=== PATIENT | female | born 1940 | race Caucasian/White ===

== ENCOUNTER 2017-08-18 03:48 | Inpatient (IN) | payer MEDICAID, OTHER ==
[~2017-08-18] VITALS: Ht 152.4 cm; Wt 73.7 kg
[2017-08-18 06:03] VITALS: BP 135/100; PULSE 85; RESP 16; TEMP 98; O2SAT 97
[2017-08-18] MEDS ORDERED: ALUMINUM/MAGNESIUM/SIMETH 30 ML CUP PO PRN (07:15)
[2017-08-18] MEDS ORDERED: MAGNESIUM HYDROXIDE SUSP 30 ML CUP PO PRN (07:15)
[2017-08-18] MEDS ORDERED: ACETAMINOPHEN 325 MG TAB PO PRN (07:15)
[2017-08-18] MEDS ORDERED: LORazepam 2 MG/ML VIAL - age > 65 yrs IM PRN (07:15)
[2017-08-18] MEDS ORDERED: LORazepam 0.5 MG TAB age > 65 yrs PO PRN (07:15)
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
[2017-08-18 17:40] VITALS: BP 137/81; PULSE 83; RESP 17; TEMP 98.5; O2SAT 98
[2017-08-18] MEDS: risperiDONE 0.25 MG TAB PO SCH (20:40)
[2017-08-18] MEDS ORDERED: diphenhydrAMINE HCL 25 MG CAP PO PRN (21:00)
[2017-08-19 06:07] VITALS: BP 145/68; PULSE 114; RESP 17; TEMP 97.6
[2017-08-19] MEDS: risperiDONE 0.25 MG TAB PO SCH ×2 (08:11→20:25)
--- NOTE | 2017-08-19 10:30 | HHI.PYPN ---
Subjective Remarks Patient was seen today for psychiatric reevaluation. Chart was reviewed. She was also evaluated for second opinion. On psychiatric evaluation today the patient is found recreational area of the unit, she is patient to other patients , talking about Jose Angel Palomares singing some Restorationism songs. She reports very good mood, "a lot of energy, with Jose Angel Palomares in my heart". She denies suicidal and homicidal ideation, she denies visual and auditory hallucinations. The patient is marked psychomotor agitation, restlessness, disruptive at times , early talkative, but no pressure, at times becomes disorganized, but she is redirectable. Compliant with her medications, no significant effects. The patient is oriented 3. Review of Systems Constitutional: DENIES: Diaphoretic episodes, Fatigue, Fever, Weight gain, Weight loss, Chills, Dizziness, Change in appetite, Night Sweats Endocrine: DENIES: Abnorml menstrual pattern, Heat/cold intolerance, Polydipsia , Polyuria, Polyphagia Eyes: DENIES: Blurred vision, Diplopia, Eye inflammation, Eye pain, Vision loss , Photosensitivity, Double Vision Ears, nose, mouth, throat: DENIES: Tinnitus, Hearing loss, Vertigo, Nasal discharge, Oral lesions, Throat pain, Hoarseness, Ear Pain, Running Nose, Epistaxis, Sinus Pain, Toothache, Odynophagia Respiratory: DENIES: Apneas, Cough, Snoring, Wheezing, Hemoptysis, Sputum production, Shortness of breath Cardiovascular: DENIES: Chest pain, Palpitations, Syncope, Dyspnea on Exertion , PND, Lower Extremity Edema, Orthopnea, Claudication Gastrointestinal: DENIES: Abdominal pain, Black stools, Bloody stools, Constipation, Diarrhea, Nausea, Vomiting, Difficulty Swallowing, Anorexia Genitourinary: DENIES: Abnormal vaginal bleeding, Dysmenorrhea, Dyspareunia, Sexual dysfunction, Urinary frequency, Urinary incontinence, Urgency, Hematuria , Dysuria, Nocturia, Vaginal discharge Musculoskeletal: DENIES: Joint pain, Muscle aches, Stiffness, Joint Swelling, Back pain, Neck pain Integumentary: DENIES: Abnormal pigmentation, Pruritus, Rash, Nail changes, Breast masses, Breast skin changes, Nipple discharge Hematologic/lymphatic: DENIES: Bruising, Lymphadenopathy Immunologic/allergic: DENIES: Eczema, Urticaria Neurologic: DENIES: Abnormal gait, Headache, Localized weakness, Paresthesias, Seizures, Speech Problems, Tremor, Poor Balance Psychiatric: COMPLAINS OF: Mood changes, DENIES: Anxiety, Confusion, Depression , Hallucinations, Agitation, Suicidal Ideation, Homicidal Ideation, Delusions Mental Status Examination Appearance: Appropriate Consciousness: Alert Orientation: x4, Place, Date/Time Motor Activity: Normal gait Speech: Unremarkable Language: Adequate Fund of Knowledge: Inadequate Attention and Concentration: Adequate Memory: Impaired Mood: Appropriate Affect: Appropriate Thought Process & Associations: Other (concrete) Thought Content: Preoccupations (scientologist), Delusional Hallucination Type: Visual Delusion Type: Paranoid, Other (scientologist) Suicidal Ideation: No Suicidal Plan: No Suicidal Intention: No Homicidal Ideation: No Homicidal Plan: No Homicidal Intention: No Insight: Poor Judgment: Poor Results Vitals/IOs Vital Signs Date Time Temp Pulse Resp B/P (MAP) Pulse Ox O2 Delivery O2 Flow Rate FiO2 08/19/17 06:07 97.6 114 17 145/68 (93) 08/18/17 17:40 98 Intake and Output 08/19/17 08/19/17 08/20/17 08:00 16:00 00:00 Intake Total 0 ml Balance 0 ml Assessment & Plan Problem List: (1) Unspecified psychosis ICD Codes: F29 - Unspecified psychosis not due to a substance or known physiological condition Assessment & Plan: Patient continues to show symptoms of psychosis, paranoia, manic-like behavior, very religiously preoccupied, hyperactive. Increase Risperdal 2.5 mg twice a day for psychosis. (2) Dementia ICD Codes: F03.90 - Unspecified dementia without behavioral disturbance Assessment & Plan Estimated LOS: days Justification for Cont. Inpt. Patient is acutely psychotic, she needs psychiatric hospitalization for stabilization. Kehinde Adam MD Aug 19, 2017 10:29
[2017-08-19 16:17] VITALS: BP 127/88; PULSE 63; RESP 17; TEMP 98.2; O2SAT 95
[2017-08-20 06:05] VITALS: BP 120/76; PULSE 110; RESP 16; TEMP 98.8; O2SAT 97
[2017-08-20] MEDS: risperiDONE 0.25 MG TAB PO SCH ×2 (08:33→20:31)
--- NOTE | 2017-08-20 15:34 | HHI.PYPN ---
Subjective Remarks Patient was seen and case discussed with nursing. Interview conducted in Nepali. Patient is elevated and grandiose. She is very perseverant and preoccupied with various latter day delusions. She is blessing us in the other patients. She prayed all night. She believes that the [place] is in a tree next to her porch. She is behaving well on the unit and has not had any outbursts. Tolerating her medications well Mental Status Examination Appearance: Appropriate Consciousness: Alert Orientation: x4, Place, Date/Time Motor Activity: Normal gait Speech: Unremarkable Language: Adequate Fund of Knowledge: Inadequate Attention and Concentration: Adequate Memory: Impaired Mood: Appropriate Affect: Appropriate Thought Process & Associations: Other (concrete) Thought Content: Preoccupations (latter day), Delusional Hallucination Type: Visual Delusion Type: Bizarre, Paranoid, Other (latter day) Suicidal Ideation: No Suicidal Plan: No Suicidal Intention: No Homicidal Ideation: No Homicidal Plan: No Homicidal Intention: No Insight: Poor Judgment: Poor Results Vitals/IOs Vital Signs Date Time Temp Pulse Resp B/P (MAP) Pulse Ox O2 Delivery O2 Flow Rate FiO2 08/20/17 06:05 98.8 110 16 120/76 (91) 97 Intake and Output 08/20/17 08/20/17 08/21/17 08:00 16:00 00:00 Intake Total 120 ml Balance 120 ml Assessment & Plan Problem List: (1) Unspecified psychosis ICD Codes: F29 - Unspecified psychosis not due to a substance or known physiological condition (2) Dementia ICD Codes: F03.90 - Unspecified dementia without behavioral disturbance Assessment & Plan Continue current treatment plan Justification for Cont. Inpt. Patient would decompensate in a less restrictive setting. Naveen Villasenor DO Aug 20, 2017 15:34
[2017-08-20 17:44] VITALS: BP 125/66; PULSE 63; RESP 16; TEMP 98.2; O2SAT 100
[2017-08-21 06:02] VITALS: BP 124/67; PULSE 92; RESP 17; TEMP 98; O2SAT 97
[2017-08-21] MEDS: risperiDONE 0.25 MG TAB PO SCH ×2 (08:35→20:26)
--- NOTE | 2017-08-21 11:21 | HHI.PYPN ---
Subjective Remarks Patient was seen and case discussed with nursing. Interview conducted in Kiswahili. Patient does remain religiously preoccupied. Complaining of visual hallucination this morning where she saw 2 suns in the duy. Patient later remembered her nephew named Edgardo in the duy that was killed on the streets of [place]. She became labile and tearful for the next couple minutes. Compliant with medications and behaving well on the unit. Denies suicidal or homicidal ideations or plan Mental Status Examination Appearance: Appropriate Consciousness: Alert Orientation: x4, Place, Date/Time Motor Activity: Normal gait Speech: Unremarkable Language: Adequate Fund of Knowledge: Inadequate Attention and Concentration: Adequate Memory: Impaired Mood: Appropriate Affect: Labile Thought Process & Associations: Other (concrete) Thought Content: Preoccupations (jewish), Delusional Hallucination Type: Visual Delusion Type: Bizarre, Paranoid, Other (jewish) Suicidal Ideation: No Suicidal Plan: No Suicidal Intention: No Homicidal Ideation: No Homicidal Plan: No Homicidal Intention: No Insight: Poor Judgment: Poor Results Vitals/IOs Vital Signs Date Time Temp Pulse Resp B/P (MAP) Pulse Ox O2 Delivery O2 Flow Rate FiO2 08/21/17 06:02 98.0 92 17 124/67 (86) 97 Intake and Output 08/21/17 08/21/17 08/22/17 08:00 16:00 00:00 Intake Total 0 ml 360 ml Balance 0 ml 360 ml Assessment & Plan Problem List: (1) Unspecified psychosis ICD Codes: F29 - Unspecified psychosis not due to a substance or known physiological condition (2) Dementia ICD Codes: F03.90 - Unspecified dementia without behavioral disturbance Assessment & Plan Continue current treatment plan Justification for Cont. Inpt. Patient will decompensate in a less restrictive setting Naveen Villasenor DO Aug 21, 2017 11:21
[2017-08-21 18:13] VITALS: BP 155/71; PULSE 92; RESP 16; TEMP 98.3; O2SAT 97
[2017-08-22 06:37] VITALS: BP 135/73; PULSE 90; RESP 18; TEMP 97.4; O2SAT 96
[2017-08-22] MEDS: risperiDONE 0.25 MG TAB PO SCH ×2 (09:55→22:12)
--- NOTE | 2017-08-22 11:35 | PD.TTN ---
Patient Problems 1. Discharge planning 2. Medication compliance 3. Knowledge deficit 4. Lack of coping skills Progress Toward Goals Provider Present: Dr. Veronique Edwards Provider Input: 08/22/17 started medications last week, will assess for stabilization/improvement today Nurse(s) Input: 08/22/17 Elijah: patient is med compliant and poor sleep last nigth due to room mates interferrence, and religiously pre-occupied Psychiatric Counselors Present: Lina Hooper LCSW Psych Therapist Input: 08/22/17 overall patient is reported compliant and cooperative, she is observed on phone often and appears social, but language barrier makes it difficult to assess Group Spec/RT/OT/ANGULO Present: Chris Stevens OT Group Spec/RT/OT/ANGULO Input: 08/22/17 patient attends groups and participates Lina Hooper LCSW Aug 22, 2017 11:35
--- NOTE | 2017-08-22 13:30 | HHI.PYPN ---
Subjective Remarks Patient seen for follow, chart reviewed. Discussion nursing staff reported the patient has been compliant with medications have poor sleep due to her roommate continues taoist preoccupation. Patient was found ambulating in the hallway B, cooperative. Patient states she also mentions feeling that people are laughing at her. Patient stands up and shows database report writer the window stating that she saw "2 suns" and states that it was a message from God. Review of Systems Except as stated in HPI: all other systems reviewed are Neg Mental Status Examination Appearance: Appropriate Consciousness: Alert Orientation: x4, Place, Date/Time Motor Activity: Normal gait Speech: Unremarkable Language: Adequate Fund of Knowledge: Inadequate Attention and Concentration: Adequate Memory: Impaired Mood: Appropriate Affect: Anxious Thought Process & Associations: Other (concrete) Thought Content: Preoccupations (taoist), Delusional Hallucination Type: Visual Delusion Type: Bizarre, Paranoid, Other (taoist) Suicidal Ideation: No Suicidal Plan: No Suicidal Intention: No Homicidal Ideation: No Homicidal Plan: No Homicidal Intention: No Insight: Poor Judgment: Poor Results Vitals/IOs Vital Signs Date Time Temp Pulse Resp B/P (MAP) Pulse Ox O2 Delivery O2 Flow Rate FiO2 08/22/17 06:37 97.4 90 18 135/73 (93) 96 Intake and Output 08/22/17 08/22/17 08/22/17 07:59 15:59 23:59 Intake Total 240 ml 240 ml Balance 240 ml 240 ml Assessment & Plan Problem List: (1) Unspecified psychosis ICD Codes: F29 - Unspecified psychosis not due to a substance or known physiological condition (2) Dementia ICD Codes: F03.90 - Unspecified dementia without behavioral disturbance Assessment & Plan Patient this time continues to have taoist preoccupations along with taoist delusions of God communicating to her with what she believes are through interpretation of visual images. We will increase risperidone to 1 mg p.o. twice daily with titration for psychosis. Continue monitor mood and behavior. Discharge planning in progress. Justification for Cont. Inpt. At risk for further decompensation at lower level of care Discharge Planning Back to residence Derick Edwards MD Aug 22, 2017 13:30
[2017-08-22 18:09] VITALS: BP 121/56; PULSE 82; RESP 16; TEMP 98.6; O2SAT 97
[2017-08-22] MEDS ORDERED: risperiDONE 0.25 MG TAB PO SCH (21:00)
[2017-08-23] MEDS: risperiDONE 0.25 MG TAB PO SCH ×2 (08:56→20:55)
--- NOTE | 2017-08-23 15:59 | HHI.PYPN ---
Subjective Remarks Patient is here for follow-up, chart reviewed. Discussion nursing staff reported the patient slept much better after roommate was moved from her room but continues to be religiously preoccupied. Patient was found wandering into other patient's rooms. To be blessing them and when redirected back to her room for interview patient states that she had been visiting other patients because she likes to "visit the sick". Patient reports feeling "fine" states having slept much better and reports eating and drinking well with no difficulty with bowel movement. Patient states that her mood has been "happy with God" continues to be noted to be nondenominational and preoccupied again referring to the window having seen "2 suns" and making some nondenominational reference. Patient also mentions having been visited by her daughter and grandsons which she reports "went well" patient denies any auditory or visual hallucinations. Patient continues with nondenominational preoccupation and delusions. Review of Systems Except as stated in HPI: all other systems reviewed are Neg Mental Status Examination Appearance: Appropriate Consciousness: Alert Orientation: x4, Place, Date/Time Motor Activity: Normal gait Speech: Unremarkable Language: Adequate Fund of Knowledge: Inadequate Attention and Concentration: Adequate Memory: Impaired Mood: Appropriate Affect: Appropriate Thought Process & Associations: Tangential, Other (concrete) Thought Content: Preoccupations (nondenominational), Delusional Hallucination Type: Visual Delusion Type: Bizarre, Paranoid, Other (nondenominational) Suicidal Ideation: No Suicidal Plan: No Suicidal Intention: No Homicidal Ideation: No Homicidal Plan: No Homicidal Intention: No Insight: Poor Judgment: Poor Results Vitals/IOs Vital Signs Date Time Temp Pulse Resp B/P (MAP) Pulse Ox O2 Delivery O2 Flow Rate FiO2 08/22/17 18:09 98.6 82 16 121/56 (77) 97 Intake and Output 08/23/17 08/23/17 08/24/17 08:00 16:00 00:00 Intake Total 360 ml 120 ml Balance 360 ml 120 ml Assessment & Plan Problem List: (1) Unspecified psychosis ICD Codes: F29 - Unspecified psychosis not due to a substance or known physiological condition (2) Dementia ICD Codes: F03.90 - Unspecified dementia without behavioral disturbance Assessment & Plan Patient this time continues with nondenominational preoccupation and delusions as well as interpreting visual stimulus as some reference to God. We will increase risperidone to 1 mg p.o. twice daily for psychosis. Continue to monitor mood and behavior. Continue recommendations as per medical team. Discharge planning in progress. Justification for Cont. Inpt. At risk for further decompensation if at lower level of care Discharge Planning Return back to her residence once psychiatrically stable. Derick Edwards MD Aug 23, 2017 15:59
[2017-08-23 18:00] VITALS: BP 156/73; PULSE 90; RESP 20; TEMP 97.6; O2SAT 96
[2017-08-24 05:15] VITALS: BP 148/79; PULSE 95; RESP 18; TEMP 98.2; O2SAT 96
[2017-08-24] MEDS: risperiDONE 0.25 MG TAB PO SCH ×2 (09:03→20:21)
--- NOTE | 2017-08-24 12:29 | HHI.PYPN ---
Subjective Remarks Patient seen for follow up, chart reviewed. Discussion nursing staff reported the patient yesterday was feeling of the patient's patch. The rosary as well as noted to be going from table to table during breakfast and blessing everyone. Patient was found sitting in the room that B, cooperative. Patient states that she has been sleeping well, reports eating and drinking well no difficulty with bowel movement and tolerating medications well. Patient continues to endorse seeing "2 sons" which likely is a reflection of the son on a window continues to report that it has mu-ism significance. She continues to be religiously preoccupied but less so today. Review of Systems Except as stated in HPI: all other systems reviewed are Neg Mental Status Examination Appearance: Appropriate Consciousness: Alert Orientation: x4, Place, Date/Time Motor Activity: Normal gait Speech: Unremarkable Language: Adequate Fund of Knowledge: Inadequate Attention and Concentration: Adequate Memory: Impaired Mood: Appropriate Affect: Appropriate Thought Process & Associations: Other (concrete) Thought Content: Preoccupations (mu-ism), Delusional Hallucination Type: Visual Delusion Type: Bizarre, Other (mu-ism) Suicidal Ideation: No Suicidal Plan: No Suicidal Intention: No Homicidal Ideation: No Homicidal Plan: No Homicidal Intention: No Insight: Poor Judgment: Poor Results Vitals/IOs Vital Signs Date Time Temp Pulse Resp B/P (MAP) Pulse Ox O2 Delivery O2 Flow Rate FiO2 08/24/17 05:15 98.2 95 18 148/79 (102) 96 Intake and Output 08/24/17 08/24/17 08/25/17 08:00 16:00 00:00 Intake Total 0 ml Balance 0 ml Assessment & Plan Problem List: (1) Unspecified psychosis ICD Codes: F29 - Unspecified psychosis not due to a substance or known physiological condition (2) Dementia ICD Codes: F03.90 - Unspecified dementia without behavioral disturbance Assessment & Plan Patient at this time, continues to have mu-ism preoccupation, no noted agitation or behavioral disturbances. Although she continues to be religiously preoccupied, she has not endorsed any behavioral issues. We will continue with current treatment continue to monitor mood and behavior. Treatment he will try to reach family to come visit to assess patient's baseline. Continue to monitor mood and behavior. Discharge planning in progress. Justification for Cont. Inpt. At risk for further decompensation at lower level of care. Discharge Planning Return back to daughter's residence once psychiatrically stable Derick Edwards MD Aug 24, 2017 12:29
[2017-08-24 18:26] VITALS: BP 137/71; PULSE 81; RESP 18; TEMP 97.6; O2SAT 99
[2017-08-25 05:23] VITALS: BP 162/87; PULSE 100; RESP 16; TEMP 97.9; O2SAT 94
[2017-08-25] MEDS: risperiDONE 0.25 MG TAB PO SCH ×2 (09:00→21:09)
--- NOTE | 2017-08-25 11:16 | HHI.PYPN ---
Subjective Remarks Reviewed. Discussion with staff reported the patient continued to be religiously preoccupied but has not had any episodes of behavioral disturbances , intrusive behavior. Patient was presented to mental health court today and petition for involuntary hospitalization was granted. Patient was later seen in the unit sitti interacting with other patients to be, cooperative. Patient states that she is thankful that she is close to God, continues to make references of images she has seen in the past such as image of the [place] and a tree near her house. Patient reports sleeping well and denies any physical complaints at this time, eating and drinking well. Patient states that she has not spoken to her family about 3 days is trying to reach them via telephone. Review of Systems Except as stated in HPI: all other systems reviewed are Neg Mental Status Examination Appearance: Appropriate Consciousness: Alert Orientation: x4, Place, Date/Time Motor Activity: Normal gait Speech: Unremarkable Language: Adequate Fund of Knowledge: Inadequate Attention and Concentration: Adequate Memory: Impaired Mood: Appropriate Affect: Appropriate Thought Process & Associations: Other (concrete) Thought Content: Preoccupations (jain), Delusional Hallucination Type: Visual Delusion Type: Bizarre, Other (jain) Suicidal Ideation: No Suicidal Plan: No Suicidal Intention: No Homicidal Ideation: No Homicidal Plan: No Homicidal Intention: No Insight: Poor Judgment: Poor Results Vitals/IOs Vital Signs Date Time Temp Pulse Resp B/P (MAP) Pulse Ox O2 Delivery O2 Flow Rate FiO2 08/25/17 05:23 97.9 100 16 162/87 (112) 94 Intake and Output 08/25/17 08/25/17 08/26/17 08:00 16:00 00:00 Intake Total 0 ml 120 ml Balance 0 ml 120 ml Assessment & Plan Problem List: (1) Unspecified psychosis ICD Codes: F29 - Unspecified psychosis not due to a substance or known physiological condition (2) Dementia ICD Codes: F03.90 - Unspecified dementia without behavioral disturbance Assessment & Plan Continues to be religiously preoccupied but less intense and redirectable, but has not had any behavioral disturbances since admission easily redirectable. Continue current treatment. Will attempt to contact family to visit and assess baseline. Continue to monitor mood and behavior. Discharge planning in progress. Justification for Cont. Inpt. At risk for decompensation at lower level of care Discharge Planning Return back to her residence Derick Edwards MD Aug 25, 2017 11:16
[2017-08-25 17:18] VITALS: BP 117/70; PULSE 90; RESP 16; TEMP 98; O2SAT 98
[2017-08-26 06:16] VITALS: BP 158/81; PULSE 114; RESP 18; TEMP 97.6; O2SAT 96
[2017-08-26] MEDS: risperiDONE 0.25 MG TAB PO SCH ×2 (08:17→20:15)
--- NOTE | 2017-08-26 15:22 | HHI.PYPN ---
Subjective Remarks Patient seen for follow up; chart reviewed. Discussion with nursing staff reported patient noted to be less intrusive, med compliant, less religiously preoccupied. Patient was found in the room noted to be calm and cooperative. Patient states that she has some difficulty sleeping last night as she states she has been missing her family and worried about their well-being as she is mentions her daughter and grandson both undergo dialysis. She reports her mood being "good" continues to have some restoration preoccupation but seems less intense today. Patient has not had any behavioral disturbances since admission. Review of Systems Except as stated in HPI: all other systems reviewed are Neg Mental Status Examination Appearance: Appropriate Consciousness: Alert Orientation: x4, Place, Date/Time Motor Activity: Normal gait Speech: Unremarkable Language: Adequate Fund of Knowledge: Inadequate Attention and Concentration: Adequate Memory: Impaired Mood: Appropriate Affect: Appropriate Thought Process & Associations: Other (concrete) Thought Content: Preoccupations (restoration), Delusional (Less today) Hallucination Type: Visual Delusion Type: Bizarre, Other (restoration) Suicidal Ideation: No Suicidal Plan: No Suicidal Intention: No Homicidal Ideation: No Homicidal Plan: No Homicidal Intention: No Insight: Poor Judgment: Poor Results Vitals/IOs Vital Signs Date Time Temp Pulse Resp B/P (MAP) Pulse Ox O2 Delivery O2 Flow Rate FiO2 08/26/17 06:16 97.6 114 18 158/81 (106) 96 Intake and Output 08/26/17 08/26/17 08/27/17 08:00 16:00 00:00 Intake Total 240 ml 120 ml Balance 240 ml 120 ml Assessment & Plan Problem List: (1) Unspecified psychosis ICD Codes: F29 - Unspecified psychosis not due to a substance or known physiological condition (2) Dementia ICD Codes: F03.90 - Unspecified dementia without behavioral disturbance Assessment & Plan Patient at this time continues to have restoration preoccupation but less intense now, no behavioral disturbances since admission to compliant and pleasant with staff. Patient to continue current medications this patient appears to be responding to current treatment. Continue to monitor mood and behavior. Delivery Representative attempted several times to contact patient's daughter to have them visit patient to assess patient's baseline with plan to have patient discharge soon. Continue to monitor mood and behavior. Discharge planning in progress. Justification for Cont. Inpt. At risk of further decompensation at lower level of care Discharge Planning Return back to her residence. Derick Edwards MD Aug 26, 2017 15:22
[2017-08-26 20:00] VITALS: BP 142/82; PULSE 98; RESP 16; TEMP 98; O2SAT 98
[2017-08-27 05:51] VITALS: BP 142/76; PULSE 82; RESP 18; TEMP 97.6; O2SAT 99
[2017-08-27] MEDS: risperiDONE 0.25 MG TAB PO SCH ×2 (08:22→21:25)
--- NOTE | 2017-08-27 14:57 | HHI.PYPN ---
Subjective Remarks Pt was seen and discussed with staff. She has been compliant with care and medications. She is religiously preoccupied. She was scrubbing floor with toothbrush and was disrobing earlier today. She has been tearful at times. No SI /HI Mental Status Examination Appearance: Appropriate Consciousness: Alert Orientation: x4, Place, Date/Time Motor Activity: Normal gait Speech: Unremarkable Language: Adequate Fund of Knowledge: Inadequate Attention and Concentration: Adequate Memory: Impaired Mood: Appropriate Affect: Appropriate Thought Process & Associations: Other (concrete) Thought Content: Preoccupations (latter day), Delusional (Less today) Hallucination Type: Visual Delusion Type: Bizarre, Other (latter day) Suicidal Ideation: No Suicidal Plan: No Suicidal Intention: No Homicidal Ideation: No Homicidal Plan: No Homicidal Intention: No Insight: Poor Judgment: Poor Results Vitals/IOs Vital Signs Date Time Temp Pulse Resp B/P (MAP) Pulse Ox O2 Delivery O2 Flow Rate FiO2 08/27/17 05:51 97.6 82 18 142/76 (98) 99 Intake and Output 08/27/17 08/27/17 08/28/17 08:00 16:00 00:00 Intake Total 360 ml Balance 360 ml Assessment & Plan Problem List: (1) Unspecified psychosis ICD Codes: F29 - Unspecified psychosis not due to a substance or known physiological condition (2) Dementia ICD Codes: F03.90 - Unspecified dementia without behavioral disturbance Assessment & Plan Continue current tx plan. Estimated LOS: days Justification for Cont. Inpt. risk of decompensation Roya Hernandez MD Aug 27, 2017 14:57
[2017-08-27 18:09] VITALS: BP 126/79; PULSE 88; RESP 17; TEMP 98.7; O2SAT 98
[2017-08-28 05:38] VITALS: BP 147/81; PULSE 109; RESP 18; TEMP 97.8; O2SAT 98
[2017-08-28] MEDS: risperiDONE 0.25 MG TAB PO SCH ×2 (08:25→20:17)
--- NOTE | 2017-08-28 14:10 | HHI.PYPN ---
Subjective Remarks Pt seen and discussed with staff. She remains religiously fixated and has been blessing water and medications. She was dancing in dayroom earlier. Mood has been calm adn happy today. She is cooperative with care. Mental Status Examination Appearance: Appropriate Consciousness: Alert Orientation: x4, Place, Date/Time Motor Activity: Normal gait Speech: Unremarkable Language: Adequate Fund of Knowledge: Inadequate Attention and Concentration: Adequate Memory: Impaired Mood: Appropriate Affect: Appropriate Thought Process & Associations: Other (concrete) Thought Content: Preoccupations (yazidism), Delusional (Less today) Hallucination Type: Visual Delusion Type: Bizarre, Other (yazidism) Suicidal Ideation: No Suicidal Plan: No Suicidal Intention: No Homicidal Ideation: No Homicidal Plan: No Homicidal Intention: No Insight: Poor Judgment: Poor Results Vitals/IOs Vital Signs Date Time Temp Pulse Resp B/P (MAP) Pulse Ox O2 Delivery O2 Flow Rate FiO2 08/28/17 05:38 97.8 109 18 147/81 (103) 98 Intake and Output 08/28/17 08/28/17 08/29/17 08:00 16:00 00:00 Intake Total 240 ml Balance 240 ml Assessment & Plan Problem List: (1) Unspecified psychosis ICD Codes: F29 - Unspecified psychosis not due to a substance or known physiological condition (2) Dementia ICD Codes: F03.90 - Unspecified dementia without behavioral disturbance Assessment & Plan Continue current tx plan. Estimated LOS: days Justification for Cont. Inpt. risk of decompensation Roya Hernandez MD Aug 28, 2017 14:10
[2017-08-28 18:09] VITALS: BP 156/87; PULSE 88; RESP 18; TEMP 97.6; O2SAT 98
[2017-08-29 05:57] VITALS: BP 131/65; PULSE 101; RESP 18; TEMP 97.5; O2SAT 97
[2017-08-29] MEDS: risperiDONE 0.25 MG TAB PO SCH ×2 (08:16→20:38)
--- NOTE | 2017-08-29 15:08 | HHI.PYPN ---
Subjective Remarks Patient seen for follow up; chart reviewed. Discussion with nursing staff reported that patient continues with christianity preoccupation. There is also reported the patient was seen blessing her medications include. Patient was found sitting in day room noted to be calm and cooperative. Patient states that her weekend went well, poor sleeping, eating and drinking and denies any physical complaints. Patient continues to be somewhat preoccupied but noted to be less intense. Treatment team attempted to contact patient's family multiple times to have family assess patient's baseline. Patient has not had any behavioral disturbances since admission. Review of Systems Except as stated in HPI: all other systems reviewed are Neg Mental Status Examination Appearance: Appropriate Consciousness: Alert Orientation: x4, Place, Date/Time Motor Activity: Normal gait Speech: Unremarkable Language: Adequate Fund of Knowledge: Inadequate Attention and Concentration: Adequate Memory: Impaired Mood: Appropriate Affect: Appropriate Thought Process & Associations: Other (concrete) Thought Content: Preoccupations (christianity), Delusional (Less today) Hallucination Type: None Delusion Type: Bizarre, Other (christianity) Suicidal Ideation: No Suicidal Plan: No Suicidal Intention: No Homicidal Ideation: No Homicidal Plan: No Homicidal Intention: No Insight: Poor Judgment: Poor Results Vitals/IOs Vital Signs Date Time Temp Pulse Resp B/P (MAP) Pulse Ox O2 Delivery O2 Flow Rate FiO2 08/29/17 05:57 97.5 101 18 131/65 (87) 97 Intake and Output 08/29/17 08/29/17 08/30/17 08:00 16:00 00:00 Intake Total 0 ml 360 ml Balance 0 ml 360 ml Assessment & Plan Problem List: (1) Unspecified psychosis ICD Codes: F29 - Unspecified psychosis not due to a substance or known physiological condition (2) Dementia ICD Codes: F03.90 - Unspecified dementia without behavioral disturbance Assessment & Plan Patient this time continue assembles preoccupation but less intense. We will continue current treatment continue to monitor mood and behavior. We will continue to attempt to contact family to assess patient's baseline possibility of patient discharge back home. Discharge planning in progress. Justification for Cont. Inpt. At risk of further decompensation at lower level of care. Discharge Planning Back home to her residence. Derick Edwards MD Aug 29, 2017 15:08
[2017-08-29 18:17] VITALS: BP 121/76; PULSE 86; RESP 18; TEMP 97.7; O2SAT 99
[2017-08-30 05:22] VITALS: BP 147/75; PULSE 85; RESP 18; TEMP 97.6; O2SAT 98
[2017-08-30] MEDS: risperiDONE 0.25 MG TAB PO SCH (08:14)
[2017-08-30] MEDS ORDERED: RISP1TAB2 PO (11:31)
[2017-08-30] MEDS ORDERED: BENA25CA4 PO (11:31)
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
== END 2017-08-30 14:45 | disposition home or self-care (01) | DRG 885 ==
LOC: H250 05:55
PROVIDERS: ADMIT Student in an Organized Health Care Education/Training Program; ATTEND Student in an Organized Health Care Education/Training Program
DX: F23 Brief psychotic disorder (principal); F03.90 Unspecified dementia, unspecified severity, without behavioral disturbance, psychotic disturbance, mood disturbance, and anxiety; I10 Essential (primary) hypertension; R45.1 Restlessness and agitation